=== PATIENT | female | born 1990 | race Caucasian/White ===

== ENCOUNTER 2023-12-02 19:04 | Outpatient (RCR) | payer BC, SELFPAY | END 2023-12-02 23:59 | disposition home or self-care (01) | LOC: RPT 19:04 | DX: M41.00 Infantile idiopathic scoliosis, site unspecified (principal); Z73.6 Limitation of activities due to disability | CPT/HCPCS: 97110; 97140; 97163 ==

== ENCOUNTER 2023-12-23 19:03 | Outpatient (RCR) | payer BC, SELFPAY | END 2023-12-23 23:59 | disposition home or self-care (01) | LOC: RPT 19:03 | PROVIDERS: ATTENDING PHYSICIAN Specialist | DX: M41.00 Infantile idiopathic scoliosis, site unspecified (principal); Z73.6 Limitation of activities due to disability | CPT/HCPCS: 97110; 97112; 97140 ==

== ENCOUNTER 2023-12-25 06:03 | Day surgery (SDC) | payer BC, SELFPAY ==
[2023-12-23 09:07] VITALS: BMI 18.9
[2023-12-23 10:24] LABS: % Basophils 1.7 % (0-2); % Eosinophils 6.8 % (0-6); % Immature Granulocytes 0.2 % (0-0.5); % Lymphocytes 40.4 % (20.5-51.1); % Neutrophils 43.9 % (42.2-75.2); Absolute Basophils 0.1 10^3/uL (0-0.2); Absolute Eosinophils 0.3 10^3/uL (0-0.7); Absolute Lymphocytes 1.7 10^3/uL (1.2-3.4); Absolute Monocytes 0.3 10^3/uL (0.1-0.6); Absolute Neutrophils 1.8 10^3/uL (1.4-6.5); Mean Corp Hgb Conc. 34.1 g/dL (33.0-37.0); Mean Corpuscular Volume 87.8 fL (81.0-99.0); Mean Platelet Volume 9.5 fL (7.4-10.4); Nucleated Red Blood Cells % 0 %; Platelet Count 228 10^3/uL (130-400); Red Blood Cell Count 4.67 10^6/uL (4.20-5.40); Red Cell Dist. Width 11.5 % (11.5-14.5); White Blood Cell Count 4.1 10^3/uL (4.8-10.8)
[2023-12-23 10:26] LABS: HCG, Urine Qualitative Screen Negative
[2023-12-25] VITALS (10 sets, daily range): BP systolic 82–116; BP diastolic 56–70; BMI 18.9
[2023-12-25] MEDS: NORMOSOL-R 1000 IV (07:00)
== END 2023-12-25 09:06 | disposition home or self-care (01) ==
LOC: SDS 06:03
PROVIDERS: ATTENDING PHYSICIAN Otolaryngology
DX: H69.83 Other specified disorders of Eustachian tube, bilateral (principal)
CPT/HCPCS: 69436; 36415; 81025; 85025; L8699

== ENCOUNTER 2024-01-30 06:53 | Outpatient (RCR) | payer BC, SELFPAY | END 2024-01-30 23:59 | disposition home or self-care (01) | LOC: RPT 06:53 | PROVIDERS: ATTENDING PHYSICIAN Specialist | DX: M41.00 Infantile idiopathic scoliosis, site unspecified (principal); Z73.6 Limitation of activities due to disability | CPT/HCPCS: 97110; 97140 ==

== ENCOUNTER 2024-02-10 17:55 | Outpatient (RCR) | payer BC, SELFPAY | END 2024-02-27 07:28 | disposition home or self-care (01) | LOC: RPT 17:55 | PROVIDERS: ATTENDING PHYSICIAN Specialist | DX: M41.00 Infantile idiopathic scoliosis, site unspecified (principal); Z73.6 Limitation of activities due to disability | CPT/HCPCS: 97110; 97140 ==

== ENCOUNTER 2024-06-22 07:18 | Outpatient (RCR) | payer BC, SELFPAY | END 2024-06-22 23:59 | disposition home or self-care (01) | LOC: RPT 07:18 | PROVIDERS: ATTENDING PHYSICIAN Family Medicine | DX: M62.89 Other specified disorders of muscle (principal); N94.19 Other specified dyspareunia; Z73.6 Limitation of activities due to disability; R10.2 Pelvic and perineal pain | CPT/HCPCS: 97163; 97530 ==

== ENCOUNTER → 2024-06-22 11:19 | Outpatient (REF) | payer BC, SELFPAY ==
[2024-06-22 12:01] LABS: % Basophils 1.3 % (0-2); % Eosinophils 1.3 % (0-6); % Lymphocytes 43.1 % (20.5-51.1); % Monocytes 6.1 % (1.7-9.3); % Neutrophils 48.2 % (42.2-75.2); Absolute Lymphocytes 1.3 10^3/uL (1.2-3.4); Absolute Monocytes 0.2 10^3/uL (0.1-0.6); Absolute Neutrophils 1.5 10^3/uL (1.4-6.5); Hematocrit 37.5 % (37.0-47.0); Hemoglobin 13.3 g/dL (12.0-16.0); Mean Corp Hgb Conc. 35.5 g/dL (33.0-37.0); Mean Corpuscular Hgb 30.6 pg (27.0-31.0); Mean Corpuscular Volume 86.2 fL (81.0-99.0); Mean Platelet Volume 9.1 fL (7.4-10.4); Nucleated Red Blood Cells % 0 %; Platelet Count 242 10^3/uL (130-400); Red Blood Cell Count 4.35 10^6/uL (4.20-5.40); Red Cell Dist. Width 11.3 % (11.5-14.5); White Blood Cell Count 3.1 10^3/uL (4.8-10.8)
[2024-06-22 12:13] LABS: INR 0.99; PT 13.4 Sec (11.4-14.6)
[2024-06-22 12:14] LABS: APTT 32.4 Sec (23.4-35.0)
[2024-06-22 12:16] LABS: D-Dimer 0.32 ug/mlFEU (0.00-0.50)
[2024-06-22 12:34] LABS: C-Reactive Protein < 5.00 mg/L (0.0-10.00)
[2024-06-22 13:01] LABS: Hepatitis B Surface Antigen Negative (Negative)
[2024-06-22 13:11] LABS: HIV Combo Negative (Negative)
[2024-06-22 13:18] LABS: Hepatitis C Antibody Negative (Negative)
[2024-06-22 13:41] LABS: Folate > 20.0 ng/ml (2.76-20); Vitamin B12 > 1000 pg/ml (239-931)
[2024-06-22 17:28] LABS: Peripheral Review-Pathologist Y
[2024-06-24 22:11] LABS: Copper, Serum 107.1 ug/dL (80.0-155.0)
== END ==
LOC: REG 11:19
PROVIDERS: ATTENDING PHYSICIAN Family Medicine
DX: D70.8 Other neutropenia (principal)
CPT/HCPCS: 36415; 82525; 82607; 82746; 85025; 85379; 85610; 85730; 86140; 86803; 87340; 87389

== ENCOUNTER 2024-07-27 18:08 | Outpatient (RCR) | payer BC, SELFPAY | END 2024-07-27 23:59 | disposition home or self-care (01) | LOC: RPT 18:08 | PROVIDERS: ATTENDING PHYSICIAN Family Medicine | DX: M62.89 Other specified disorders of muscle (principal); N94.19 Other specified dyspareunia; Z73.6 Limitation of activities due to disability; R10.2 Pelvic and perineal pain | CPT/HCPCS: 97010; 97110; 97112; 97140; 97530 ==

== ENCOUNTER 2024-09-04 06:42 | Outpatient (RCR) | payer BC, SELFPAY | END 2024-09-04 23:59 | disposition home or self-care (01) | LOC: RPT 06:42 | PROVIDERS: ATTENDING PHYSICIAN Family Medicine | DX: M62.89 Other specified disorders of muscle (principal); N94.19 Other specified dyspareunia; Z73.6 Limitation of activities due to disability; R10.2 Pelvic and perineal pain | CPT/HCPCS: 97110; 97140 ==

== ENCOUNTER 2024-09-23 17:08 | Outpatient (RCR) | payer BC, SELFPAY | END 2024-09-24 07:32 | disposition home or self-care (01) | LOC: RPT 17:08 | PROVIDERS: ATTENDING PHYSICIAN Family Medicine | DX: M62.89 Other specified disorders of muscle (principal); N94.19 Other specified dyspareunia; Z73.6 Limitation of activities due to disability; R10.2 Pelvic and perineal pain | CPT/HCPCS: 97110; 97140; 97530 ==

== ENCOUNTER → 2024-10-07 08:56 | Outpatient (REF) | payer BC, SELFPAY | LOC: RAD 08:56 | PROVIDERS: ATTENDING PHYSICIAN Obstetrics & Gynecology Gynecology; FAMILY PHYSICIAN Family Medicine | DX: N94.6 Dysmenorrhea, unspecified (principal); N80.9 Endometriosis, unspecified | CPT/HCPCS: 76830; 76856 ==